=== PATIENT | male | born 1985 | race Caucasian/White ===

== ENCOUNTER 2021-06-17 08:46 | Emergency (ER) | payer OTHER ==
[2021-06-17] MEDS ORDERED: HYDROcodone/Acetaminophen 5/325 mg Tablet ONE (09:23)
[2021-06-17] MEDS ORDERED: Cyclobenzaprine 10 MG TAB ONE (09:24)
[2021-06-17] MEDS ORDERED: Gabapentin 100 MG CAP ONE (09:24)
[2021-06-17] MEDS ORDERED: Ketorolac Tromethamine 60 MG/2 ML VIAL ONE (09:24)
[2021-06-17 10:04] LABS: Amphetamine Not Detected (NotDetected); Cocaine Metabolite Screen Not Detected (NotDetected); Methamphetamine Not Detected (NotDetected); Opiate Screen Not Detected (NotDetected); Phencyclidine (PCP) Not Detected (NotDetected); THC/Cannabinoid Screen Not Detected (NotDetected)
[2021-06-17 10:05] LABS: Barbiturates Screen Not Detected (NotDetected); Benzodiazepine Screen Not Detected (NotDetected); Medtox Control Line Valid? VALID (VALID); Methadone Not Detected (NotDetected); Oxycodone Screen Not Detected (NotDetected); Tricyclic Screen Not Detected (NotDetected)
== END 2021-06-17 10:52 | disposition home or self-care (01) ==
LOC: MADERS 08:46
DX: M54.41 Lumbago with sciatica, right side (principal); I10 Essential (primary) hypertension; M62.838 Other muscle spasm; Z03.89 Encounter for observation for other suspected diseases and conditions ruled out
CPT/HCPCS: 80306; 96372; 99283; J1885